=== PATIENT | female | born 1985 | race Caucasian/White ===

== ENCOUNTER 2018-01-25 20:42 | Emergency (ER) ==
[2018-01-25 20:52] VITALS: BP 116/77; TEMP 99.3; BMI 33.3
[2018-01-25] MEDS ORDERED: MORPHINE 2 MG/ML SYRINGE IM STA (21:19)
[2018-01-25] MEDS ORDERED: ZOFRAN 4 MG/2 ML IM STA (21:19)
--- NOTE | 2018-01-25 21:51 | ED.PDOC ---
General ED Provider: Dr. GWENDOLYN BOWDEN Chief Complaint: Laceration Stated Complaint: [place], TRIPPED ON SOME ROCKS AND FELL ON GLASS. HAS 5 CMX 1.5 CM LACERATION TO LEFT FOREARM. BLEEDING CONTROLLED,. Patient had recent compartment surgery in same arm [facility] Time Seen by Physician: 21:49 Information Source: Patient Nursing and Triage Documentation Reviewed and Agree: Yes Reviewed sepsis parameters & appropriate labs ordered?: No System Inflammatory Response Syndrome: Not Applicable Sepsis Protocol: For patient's 13 years and over: Temp is 96.8 and below OR 101 and greater Pulse >90 BPM Resp >20/minute Acutely Altered Mental Status Are patient's symptoms suggestive of a new infection, such as: -Pneumonia -Skin, Soft Tissue -Endocarditis -UTI -Bone, Joint Infection -Implantable Device -Acute Abdominal Infection -Wound Infection -Meningitis -Blood Stream Catheter Infection -Unknown Skin Complaint Exam - Lac/Torso/Upper Ext. Complaint/Exam Location of Injury: Left, Forearm Mechanism of Injury: Laceration, Puncture, Sharp trauma Symptoms Are: Still present Initial Severity: Moderate Current Severity: Moderate Aggravating: Movement Associated Signs and Symptoms: Denies: Fever, Chills, Erythema, Numbness, Tingling Upper Extremity/Torso Picture: 1 - laceration Differential Diagnoses: Laceration, Puncture Wound Review of Systems - Review Of Systems Constitutional: Reports: No symptoms Eyes: Reports: No symptoms Ears, Nose, Mouth, Throat: Reports: No symptoms Respiratory: Reports: No symptoms Cardiac: Reports: No symptoms GI: Reports: No symptoms : Reports: No symptoms Musculoskeletal: Reports: No symptoms Skin: Reports: No symptoms Neurological: Reports: No symptoms Endocrine: Reports: No symptoms Hematologic/Lymphatic: Reports: No symptoms All Other Systems: Reviewed and Negative Past Medical History - Past Medical History Previously Healthy: Yes Endocrine: Reports: None Cardiovascular: Reports: None Respiratory: Reports: None Hematological: Reports: None Gastrointestinal: Reports: None Genitourinary: Reports: None Neuro/Psych: Reports: Anxiety, Depression Musculoskeletal: Reports: None Cancer: Reports: None Last Menstrual Period: NOW - Surgical History General Surgical History: Reports: None - Family History Family History: Reports: None - Social History Smoking Status: Never smoker Hx Substance Use: No Alcohol Screening: None - Immunizations Tetanus Shot up to Date: Yes Physical Exam - Physical Exam Appearance: Well-appearing, Obese Pain Distress: Moderate Eyes: RUDY, EOMI, Conjunctiva clear ENT: Ears normal, Nose normal, Oropharynx normal Respiratory: Airway patent, Breath sounds clear, Breath sounds equal, Respirations nonlabored Cardiovascular: RRR, Pulses normal, No rub, No murmur GI/: Soft, Nontender, No masses, Bowel sounds normal, No Organomegaly Musculoskeletal: No edema, No calf tenderness, Limited ROM (left forearm dorsal aspect, mid arm area 5 cm long, 1 cm breadth open wound, can see tendons . ), Limited strength (not able to hold my hand, weak drink waiter, no sensation dorsum of the hand and fingers, ) Skin: Warm, Dry, Normal color Neurological: Sensation intact, Motor intact, Reflexes intact, Cranial nerves intact, Alert, Oriented Psychiatric: Affect appropriate, Mood appropriate Physician Notification - Case Discussed Time of Notification: 23:00 ([facility] refused to take) Critical Care Note - Critical Care Note Total Time (mins): 30 Course - Course Orders, Labs, Meds: Lab Review 01/25/18 21:30 Serum , Qual Negative Orders Category Date Time Status SERUM Stat LAB 01/25/18 21:30 Completed Alprazolam [Xanax] MEDS 01/25/18 22:11 Discontinued 2 mg .ROUTE .STK-MED ONE Alprazolam [Xanax] MEDS 01/25/18 22:06 Discontinued 2 mg PO ONCE STA Hydromorphone HCl/Pf [Dilaudid 2 mg/ml Syringe] MEDS 01/25/18 23:17 Discontinued 2 mg IM ONCE STA Morphine Sulfate [Morphine 2 mg/ml Syringe] MEDS 01/25/18 21:19 Discontinued 2 mg IM ONCE STA Ondansetron HCl/Pf [Zofran 4 mg/2 ml] MEDS 01/25/18 21:19 Discontinued 4 mg IM ONCE STA CT FOREARM LEFT WO CONTRAST Stat RADS 01/25/18 21:19 Completed FOREARM, LEFT 2 VIEWS Stat RADS 01/26/18 00:41 Completed Medications Discontinued Medications Generic Name Dose Route Start Last Admin Trade Name Freq PRN Reason Stop Dose Admin Alprazolam 2 mg 01/25/18 22:06 01/25/18 22:16 Xanax PO 01/25/18 22:07 Not Given ONCE STA Hydromorphone HCl 2 mg 01/25/18 23:17 01/25/18 23:24 Dilaudid 2 Mg/Ml Syringe IM 01/25/18 23:18 2 mg ONCE STA Administration Morphine Sulfate 2 mg 01/25/18 21:19 01/25/18 21:57 Morphine 2 Mg/Ml Syringe IM 01/25/18 21:20 2 mg ONCE STA Administration Ondansetron HCl 4 mg 01/25/18 21:19 01/25/18 21:39 Zofran 4 Mg/2 Ml IM 01/25/18 21:20 4 mg ONCE STA Administration Vital Signs: Temp Pulse Resp BP Pulse Ox 01/25/18 20:44 99.3 F 79 20 116/77 98 Departure - Departure Time of Disposition: 03:15 Disposition: AMA Discharge Problem: Puncture wound of forearm with complication Qualifiers: Encounter type: initial encounter Laterality: left Qualified Code(s): S51.832A - Puncture wound without foreign body of left forearm, initial encounter Instructions: Puncture Wound (DC) Condition: Stable Pt referred to PMD for follow-up: Yes IPMP verified?: No Additional Instructions: Patient and family was informed about the refusal from the [facility]. so they wanted to go AMA and go to ER in [place] risk wound infection and osteomyelitis discussed, verbalized understanding. given her complex history on the same arm ( patient had compartment syndrome) Allergies/Adverse Reactions: Allergies meperidine [From Demerol] Adverse Reaction (Verified 01/25/18 22:02) Anaphylaxis Home Medications: Ambulatory Orders Alprazolam [Xanax] 2 mg PO BID 01/25/18 Citalopram Hydrobromide [Celexa] 40 mg PO DAILY 01/25/18 Pantoprazole Sodium [Protonix] 40 mg PO DAILY 01/25/18 Sucralfate Susp [Carafate] 1 gm PO TID 01/25/18 Trazodone HCl 100 mg PO BEDTIME 01/25/18
[2018-01-25] MEDS ORDERED: XANAX PO STA (22:06)
[2018-01-25] MEDS ORDERED: XANAX ONE (22:11)
[2018-01-25] MEDS ORDERED: DILAUDID 2 MG/ML SYRINGE IM STA (23:17)
--- NOTE | 2018-01-26 01:32 | CT ---
EXAM: CT scan left forearm without contrast HISTORY: Penetrating injury COMPARISON: Plain film exam performed the same day FINDINGS: Contiguous axial images obtained through the forearm without contrast utilizing 2-mm colli mation. Sagittal and coronal reconstructions were imaged and reviewed.. There is no acute fracture o r bony abnormality. There is a focal laceration laterally at the junction of the mid and proximal for earm with a small amount of subcutaneous air and edema. No focal foreign body is identified. IMPRESSION: There is a focal laceration laterally about the forearm as described without foreign body or bony abn ormality.
--- NOTE | 2018-01-26 01:34 | DI ---
EXAM: Left forearm two views HISTORY: Laceration COMPARISON: None. FINDINGS: AP and lateral views of the forearm were obtained.. Soft tissue irregularity is noted lat erally about the junction of the middle and distal third of the forearm. A bandage overlies the area of laceration. No bony abnormalities identified. IMPRESSION: Focal soft tissue injury laterally about the distal forearm without evidence of a foreign body or bon y abnormality
== END 2018-01-26 02:30 | disposition left against medical advice (07) ==
LOC: ED 20:42
DX: S51.812A Laceration without foreign body of left forearm, initial encounter (principal); W01.110A Fall on same level from slipping, tripping and stumbling with subsequent striking against sharp glass, initial encounter
CPT/HCPCS: 36415; 84703; 96372; 99283